=== PATIENT | female | born 1955 | race Caucasian/White ===

== ENCOUNTER 2021-03-10 09:40 | Emergency (ER) | payer MEDICAID ==
--- NOTE | 2021-03-10 09:53 | ED Physician Documentation ---
PD HPI OPHTHO - Stated complaint Stated Complaint: SPOTS IN VISION - Chief complaint Chief Complaint: Heent - History obtained from History obtained from: Patient - History of Present Illness Timing - onset: Yesterday Timing - duration: Days (1) Timing - details: Abrupt onset, Still present Location: Left Associated symptoms: Other (floater/spots in peripheral vision) Contributing factors: Other (recent long car trip). No: Recent URI, UV light (welding etc) Similar symptoms before: Diagnosis (retinal hemorrhage 2 years ago) Recently seen: Not recently seen - Additional information Additional information: 66-year-old female who has been on a cross[place]country car trip has arrived to her destination and yesterday she has developed some floaters in her L eye. She has had this previously and had a laser coagulation done with success. She indicates that there are 2 black spots and a spaghetti like wisp that will shift positions when she shifts her eyes. She does not have loss of vision or blurring of vision. Review of Systems Constitutional: denies: Fever Eyes: reports: Other (floaters/ spagetti string in left eye only). denies: Loss of vision, Decreased vision, Photophobia, Discharge, Irritation Ears: denies: Ear pain Nose: denies: Rhinorrhea / runny nose, Congestion Throat: denies: Oral lesions / sores Cardiac: denies: Chest pain / pressure, Palpitations Respiratory: denies: Dyspnea, Cough GI: denies: Abdominal Pain, Nausea, Vomiting, Constipation, Diarrhea : denies: Dysuria, Frequency Skin: denies: Rash Musculoskeletal: denies: Neck pain, Back pain, Extremity pain Neurologic: denies: Generalized weakness, Focal weakness, Numbness PD PAST MEDICAL HISTORY - Present Medications Home Medications: Ambulatory Orders Medication Instructions Recorded Confirmed No Known Home Medications 03/10/21 03/10/21 - Allergies Allergies/Adverse Reactions: Allergies Allergy/AdvReac Type Severity Reaction Status Date / Time codeine Allergy Hallucinati Verified 03/10/21 09:50 ons esomeprazole [From Nexium] Allergy Anaphylaxis Verified 03/10/21 09:50 sulfacetamide Allergy Rash Verified 03/10/21 09:50 [From Sulfamide] PD ED PE NORMAL - Vitals Vital signs reviewed: Yes (hypertensive ) - General General: Alert and oriented X 3, No acute distress, Well developed/nourished - HEENT HEENT: Atraumatic, PERRL, EOMI, Other (I am unable to fully visualize the retina with the opthalmascope. The ultrasound demonstrates an intact retina. ) - Neck Neck: Supple, no meningeal sign, No bony TTP - Respiratory Respiratory: No respiratory distress - Derm Derm: Normal color, Warm and dry, No rash - Extremities Extremities: No deformity, No edema - Neuro Neuro: Alert and oriented X 3, senior software architect 2-12 intact, No motor deficit, No sensory deficit, Normal speech Eye Opening: Spontaneous Motor: Obeys Commands Verbal: Oriented GCS Score: 15 - Psych Psych: Normal mood, Normal affect Results - Vitals Vitals: Vital Signs - 24 hr 03/10/21 03/10/21 09:44 11:49 Temperature 35.9 C L Heart Rate 70 60 Respiratory 16 16 Rate Blood Pressure 150/70 H 150/84 H O2 Saturation 98 98 Oxygen O2 Source Room air Procedures - Bedside sono Bedside sono by EMP: With use of bedside ultrasound the left thigh is examined and there does not appear to be any detachment of the retina it appears smooth and homogeneous throughout. PD MEDICAL DECISION MAKING - ED course Complexity details: re-evaluated patient, considered differential, d/w patient ED course: 66-year-old female with new onset floaters beginning yesterday is examined here in the emergency department with ultrasound of the eye without evidence of obvious retinal detachment. The call was placed to the on-call submarine element coordinator. We are unable to contact an submarine element coordinator and the patient is instructed to follow-up with Dr. Latif on Friday morning by telephone or should she have worsening over the weekend to follow-up at [facility] in [place]. She is currently on her way to [place] to complete her apartment rental agreement. She will be staying here on [facility] at least the next several weeks. Departure - Departure Disposition: 01 Home, Self Care Clinical Impression: Floaters in visual field Qualifiers: Laterality: left Qualified Code(s): H43.392 - Other vitreous opacities, left eye Condition: Stable Instructions: Flashes and Floaters Tx Follow-Up: Kolton Latif MD [Provider Admit Priv/Credential] - Discharge Date/Time: 03/10/21 11:50
[2021-03-10 11:50] VITALS: BP 150/84
== END 2021-03-10 11:50 | disposition home or self-care (01) ==
LOC: ED 09:40
DX: H43.392 Other vitreous opacities, left eye (principal)
CPT/HCPCS: 99281; 99283